=== PATIENT | female | born 1955 | race Two or more races ===

== ENCOUNTER 2025-01-09 14:03 | Outpatient (AMB) | payer MEDICARE, MEDICAID, SELFPAY ==
[2025-01-09 14:24] VITALS: BP 104/61; PULSE 78; RESP 18; TEMP 36.3; O2SAT 98; BMI 27.0
--- NOTE | 2025-01-09 14:24 | PD.ORTHCLVIS ---
Vital signs 01/09/25 14:24 Height 1.73 m Height Method Stated Weight 80.739 kg Weight Measurement Method Standing Scale BMI 27.0 BP 104/61 Blood Pressure Source Automatic Cuff Blood Pressure Location Right Upper Arm Position Sitting Respiration 18 Pulse 78 Pulse Source Monitor Temp 97.3 F Temp Source Temporal Artery Scan Pulse Oximetry (%) 98 Oxygen Delivery Method Room Air Med/Allergies Allergies & Medications Allergies No Known Drug Allergies Allergy (Verified 01/09/25 14:36) Medication Reconciliation Unobtainable 01/09/25 [History Confirmed 01/09/25] Exam Exam Patient is in no acute distress and is cooperative with the examination today. Breathing is nonlabored. Patient has a normal mood and affect. The patient has a gait that is nonantalgic Bilateral extremities were evaluated and demonstrates sensation intact to light touch. Palpable pedal pulses are present. No significant edema is present. Bilateral hips were examined. The patient has no pain with log roll of the hips. Internal rotation to 30 degrees and external rotation to 30 degrees is painless. Negative FADIR. Right knee was examined today. The right knee is in reasonable alignment. Range of motion from 0-120 degrees. Knee is stable to varus and valgus as well as AP translation with <5mm. Patient has a negative McMurrays. There is no pain with patellofemoral compression and no crepitus noted. The knee is nontender to palpation. Left knee was examined today. The left knee is in neutral alignment. Range of motion from 0-120 degrees. Knee is stable to varus and valgus as well as AP translation with <5mm. Patient has a negative McMurrays. There is no pain with patellofemoral compression and no crepitus noted. The knee is nontender to palpation diffusely. An MRI demonstrates a posterior horn medial meniscus tear Assessment and Plan Problem List (1) Acute meniscal tear of left knee: Status: Acute Plan: Patient is a pleasant 61-year-old female with left knee pain that has completely resolved. She was found to have a degenerative meniscal tear on MRI. We recommend no treatment as she has no issues at all. She can see me on an as-needed basis. We discussed that degenerative meniscal tear and frequently improve on its own. 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 ([id number]) MA Intake Visit Data Collection New Patient or Established: New Patient (never been to [facility]) Reason for Visit:: BILATERAL KNEE PAIN Seen by Clinical Staff ONLY (RN/MA): No Verbal consent obtained for Telemed visit?: No 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: Yes PCP or OBGYN visit in last 3 months: Yes Hx Now: No Do You Feel Safe at Home: Yes Authorities Contacted: N/A Questionairres Past Medical History Past Medical History Have you ever been diagnosed with any of the following: Cardiology Problems Hypercholesterolemia: Yes Hypertension: Yes Respiratory Problems Smoking: No Smoking Cessation Counseling: No Smoking Exposure: No Endocrine Problems Hypothyroidism: Yes Psychologic Problems Depression: No Anxiety: No Subjective Visit Visit for: new patient and knee Immunization / Flu Flu Vaccine in the Last 12 Months: No Flu Vaccine Exclusion Criteria: No Exclusion Criteria History of Present Illness Chief complaint: BILATERAL KNEE PAIN Date of injury / onset of symptoms: 2 YEARS Kate is a pleasant 69-year-old female with Left knee pain and left knee arthritis. She is found to have a degenerative discal tear. She reports that she has no pain at all. Personal History Red flag PMH: BMI BMI Counceling provided: Yes Pain Pain level (0-10): 5 Pain duration: WITH CERTAIN MOVEMENTS Pain location: inside (medial), outside (lateral) and anterior Pain quality: aching and burning Pain timing: increases with activity Associated signs & symptoms: none Ambulatory data Ambulatory device: none Treatments Improvement with previous injections: No Improvement with PT: No Review of Systems Review of Systems: All systems negative unless otherwise noted in HPI.
== END 2025-01-09 14:53 | disposition home or self-care (01) ==
PROVIDERS: PCP Student in an Organized Health Care Education/Training Program; Referring Provider Student in an Organized Health Care Education/Training Program; Supervising Provider Orthopaedic Surgery Adult Reconstructive Orthopaedic Surgery; Visit Provider Orthopaedic Surgery Adult Reconstructive Orthopaedic Surgery
DX: S83.242A Other tear of medial meniscus, current injury, left knee, initial encounter (principal); X58.XXXA Exposure to other specified factors, initial encounter
CPT/HCPCS: 99203; G0463